=== PATIENT | female | born 1935 | race African-American/Black ===

== ENCOUNTER 2017-10-03 17:02 | Inpatient (IN) | payer MEDICARE, BC ==
[~2017-10-03] VITALS: Ht 167.6 cm; Wt 82.5 kg
--- NOTE | ~2017-10-03 | DS ---
PATIENT:MAURICIO PHILLIPS :31 MEDICAL RECORD: [id number] DISCHARGE SUMMARY ADMISSION DATE: 10/03/17 DISCHARGE DATE: 10/16/17 IDENTIFYING DATA: The patient is 82 years old and she was admitted to the hospital on a voluntary basis because of confusion. The patient had initially presented to the Emergency Room for evaluation. She is an elderly woman, who lives with her son in [place]. She had been wandering away from the house and would become very angry and was difficult to redirect at times. She had some uncontrolled aggressive behavior toward others. On admission, the patient had no recollection of this and was calm, but only oriented to person. The son felt he was unable to manage her and that she was a potential danger to herself and others because of her behavior. HOSPITAL COURSE: The patient was admitted to the hospital and fully evaluated from both a medical, psychological, and social standpoint. She was treated with both memory enhancing and mood stabilizing medications, and showed improvement in her behavior. As expected, there was no real improvement in her underlying level of cognitive impairment. The son was simply not able to provide the level of care that she needs and she was in need of 92-vvif-a-day supervision. She was subsequently referred to and accepted by a [facility]. DISCHARGE DIAGNOSES: AXIS I: Vascular dementia. AXIS II: None. AXIS III: Hypertension and diabetes. AXIS IV: Moderate stressors. AXIS V: Global assessment of functioning 35. PLAN: At the time of discharge, the patient was in good behavioral control with limited insight about her condition. She was tolerating her medicines well. Followup was to be with her primary care [facility] physician. TRANSINT:[id number] Voice Confirmation ID: [id number] DOCUMENT ID: [id number] JUDSON OSMAN MD at 1203 CC: [id number] DICTATION DATE: 10/20/17 1427 SOLUTIONS SALES CONSULTANT: 10/20/17 1624 DIS IN 10/16/17 [place] [id number] [place] [id number]
--- NOTE | ~2017-10-03 | PN ---
PATIENT:MAURICIO PHILLIPS MEDICAL RECORD: [id number] LOCATION:[facility] ADMISSION DATE: 10/03/17 PROGRESS NOTE DATE OF SERVICE: 10/14/2017 SUBJECTIVE: The patient's case was discussed with staff. She has no new complaint. OBJECTIVE: The patient is very poorly oriented and has a bit of anxiety today. This could be related to the fact that I reduced her Klonopin yesterday, but it may just be an isolated event. She is not aggressive or threatening towards anyone. ASSESSMENT: No change in diagnoses. PLAN: Current medicines have been reviewed and will be maintained. Long-term prognosis is guarded. TRANSINT:[id number] Voice Confirmation ID: [id number] DOCUMENT ID: [id number] JUDSON OSMAN MD at 1329 CC: [id number] DICTATION DATE: 10/14/17 1353 APPLICATION SUPPORT INTERN: 10/14/17 1438 ADM IN [place] [id number] [place] [address]
--- NOTE | ~2017-10-03 | PN ---
PATIENT:MAURICIO PHILLIPS MEDICAL RECORD: [id number] LOCATION:[facility] ADMISSION DATE: 10/03/17 PROGRESS NOTE DATE OF SERVICE: 10/09/2017 SUBJECTIVE: The patient's case was discussed with staff. She has no new complaint. OBJECTIVE: The patient is in good behavioral control with limited insight about her condition. She generally tolerates her medicines well. She is severely impaired cognitively, but has not had any psychotic symptoms or aggressive behavior. She is not eating as well as I would like, but at this point, I am going to observe it another day or two before starting her on Megace. She is sleeping adequately. I think her long-term prognosis is guarded and that she can reasonably be transitioned to a lower level of care in a few days if this level of improvement is maintained. TRANSINT:[id number] Voice Confirmation ID: [id number] DOCUMENT ID: [id number] JUDSON OSMAN MD at 0742 CC: [id number] DICTATION DATE: 10/09/17 1501 CHARGING OPERATOR: 10/09/17 1601 ADM IN [place] [id number] [place] [id number]
--- NOTE | ~2017-10-03 | PN ---
PATIENT:MAURICIO PHILLIPS MEDICAL RECORD: [id number] LOCATION:[facility] ADMISSION DATE: 10/03/17 PROGRESS NOTE DATE OF SERVICE: 10/10/2017 SUBJECTIVE: The patient's case was discussed with staff. She has no new complaint. OBJECTIVE: The patient is in good behavioral control with limited insight about her condition. She tolerates her medicines well. Eye contact is fair. ASSESSMENT: No change in diagnoses. PLAN: Supportive and educational interventions were made. Long-term prognosis is guarded. I anticipate the patient can be transitioned from her home to this setting to a custodial soon. TRANSINT:[id number] Voice Confirmation ID: [id number] DOCUMENT ID: [id number] JUDSON OSMAN MD at 0949 CC: [id number] DICTATION DATE: 10/10/17 08 OCCUPATIONAL THERAPY PROGRAM DIRECTOR: 10/10/17 0900 ADM IN [place] [id number] [place] [address]
--- NOTE | ~2017-10-03 | PN ---
PATIENT:MAURICIO PHILLIPS MEDICAL RECORD: [id number] LOCATION:[facility] ADMISSION DATE: 10/03/17 PROGRESS NOTE DATE OF SERVICE: 10/08/2017 SUBJECTIVE: The patient's case was discussed with staff. She has no new complaint. OBJECTIVE: The patient is in good behavioral control, but poorly oriented. She clearly has significant short-term memory loss and overall problems with cognitive impairment. She has not been aggressive and I have observed no psychotic symptoms. ASSESSMENT: No change in diagnoses. PLAN: This patient needs 44-obaa-g-day supervision. I suspect her son, with whom she lives, is not capable of providing this. She will be treated with current medicines and the treatment team will work toward finding her appropriate housing. TRANSINT:[id number] Voice Confirmation ID: [id number] DOCUMENT ID: [id number] JUDSON OSMAN MD at 1223 CC: [id number] DICTATION DATE: 10/08/17 1415 LAND DEGRADATION ANALYST: 10/08/17 1631 ADM IN [place] [id number] [place] [address]
--- NOTE | ~2017-10-03 | PN ---
PATIENT:MAURICIO PHILLIPS MEDICAL RECORD: [id number] LOCATION:[facility] ADMISSION DATE: 10/03/17 PROGRESS NOTE DATE OF SERVICE: 10/12/2017 SUBJECTIVE: The patient's case was discussed with staff. She has no new complaint. OBJECTIVE: The patient is very poorly oriented, in good behavioral control, but shows no agitation and no aggression. ASSESSMENT: No change in diagnoses. PLAN: The patient is taking Klonopin for some agitation that she initially had. I am going to reduce the dose of this slightly and would like to see if perhaps a lower dose would be as effective. I anticipate she can be transitioned out of the hospital soon. TRANSINT:[id number] Voice Confirmation ID: [id number] DOCUMENT ID: [id number] JUDSON OSMAN MD at 1402 CC: [id number] DICTATION DATE: 10/12/17 1450 LITERATURE TEACHER: 10/12/17 1542 ADM IN [place] [id number] [place] [address]
--- NOTE | ~2017-10-03 | PN ---
PATIENT:MAURICIO PHILLIPS MEDICAL RECORD: [id number] LOCATION:[facility] ADMISSION DATE: 10/03/17 PROGRESS NOTE DATE OF SERVICE: 10/05/2017 SUBJECTIVE: The patient's case was discussed with staff. She has no new complaint. OBJECTIVE: The patient was quite agitated last night. She was very disruptive and was actively hallucinating. Apparently, she was hallucinating a conversation with a relative and was having an argument with him. She has no recollection of this today. Clearly, she is having some ongoing psychotic symptoms. She will be started on an antipsychotic medication. Her long-term prognosis is guarded. She is going to require 19-myil-u-day supervision. TRANSINT:[id number] Voice Confirmation ID: [id number] DOCUMENT ID: [id number] JUDSON OSMAN MD at 1508 CC: [id number] DICTATION DATE: 10/05/17 1503 MECHANICAL ARTIST: 10/05/17 1713 ADM IN [place] [address] [place] [address]
--- NOTE | ~2017-10-03 | PN ---
PATIENT:MAURICIO PHILLIPS MEDICAL RECORD: [id number] LOCATION:[facility] ADMISSION DATE: 10/03/17 PROGRESS NOTE DATE OF SERVICE: 10/06/2017 SUBJECTIVE: The patient's case was discussed with staff. She has no new complaint. OBJECTIVE: The patient is in good behavioral control with limited insight about her condition. She tolerates her medicines well. ASSESSMENT: No change in diagnoses. PLAN: Brief supportive and educational interventions were made. Long-term prognosis is guarded. She is much more calm than she was on admission and it is my opinion that much of the difficulty that she was experiencing is related to a lack of structure and supervision. I am going to recommend 90-kecv-n-day care for her. At this point, I do not know what the least restrictive setting is in which that can be provided. TRANSINT:[id number] Voice Confirmation ID: [id number] DOCUMENT ID: [id number] JUDSON OSMAN MD at 1520 CC: [id number] DICTATION DATE: 10/06/17 1546 SENIOR FORMULATION SCIENTIST: 10/06/17 1641 ADM IN [facility] [address] [place] [address]
--- NOTE | ~2017-10-03 | PN ---
PATIENT:MAURICIO PHILLIPS MEDICAL RECORD: [id number] LOCATION:[facility] ADMISSION DATE: 10/03/17 PROGRESS NOTE DATE OF SERVICE: 10/13/2017 SUBJECTIVE: The patient's case was discussed with staff. She has no new complaint. OBJECTIVE: The patient is in good behavioral control with limited insight about her condition. She has not been aggressive today. ASSESSMENT: No change in diagnoses. PLAN: I anticipate the patient can be transitioned out of the hospital soon. correction placement is being sought. She has been told this, but she does not retain it, so I do not think there is any reason to keep repeating the same thing to her even though each time she has told that it is as though she has heard at the first time and it upsets her. I will wait till the day that she is going to be discharged. TRANSINT:[id number] Voice Confirmation ID: [id number] DOCUMENT ID: [id number] JUDSON OSMAN MD at 1315 CC: [id number] DICTATION DATE: 10/13/17 1505 SALES AND TRAINING SPECIALIST: 10/13/17 1526 ADM IN [facility] [address] [place] [address]
--- NOTE | ~2017-10-03 | PN ---
PATIENT:MAURICIO PHILLIPS MEDICAL RECORD: [id number] LOCATION:[facility] ADMISSION DATE: 10/03/17 PROGRESS NOTE DATE OF SERVICE: 10/15/2017 SUBJECTIVE: The patient's case was discussed with staff. She has no new complaint. OBJECTIVE: The patient is confused and wandering a great deal, but not agitated by any means. She has tolerated her medications well. She is definitely in need of 74-kfhx-d-day supervision and unfortunately given her overall circumstances, the least restrictive environment is going to be a prison. TRANSINT:[id number] Voice Confirmation ID: [id number] DOCUMENT ID: [id number] JUDSON OSMAN MD at 1710 CC: [id number] DICTATION DATE: 10/15/17 1416 POLICY AND PLANNING MANAGER: 10/15/17 1421 DIS IN 10/16/17 [facility] [address] [place] [address]
--- NOTE | ~2017-10-03 | PSY ---
PATIENT NAME:MAURICIO PHILLIPS MEDICAL RECORD: [id number] : 31 LOCATION:[facility] ADMISSION DATE: 10/03/17 ACCOUNT: [id number] PSYCHIATRIC EVALUATION DATE OF EVALUATION: 10/04/17 IDENTIFYING DATA: The patient is 82 years old and she is admitted to the hospital on a voluntary basis. CHIEF COMPLAINT: Confusion. HISTORY OF PRESENT ILLNESS: The patient presented to the Emergency Room for evaluation. She is an elderly woman, who lives with her son in [place]. Apparently, she has been wandering away from the house becoming very angry when redirected and has had uncontrolled aggressive behavior toward others. The patient has no recollection of this. She is actually calm, but only oriented to person. The son feels he is not able to manage her at home and that she is a potential danger to others. He is requesting evaluation and assistance. PAST MEDICAL HISTORY: Significant for stroke, hypertension, and diabetes. PAST PSYCHIATRIC HISTORY: Negative by her account, which is admittedly questionable. FAMILY HISTORY: Significant for cardiovascular disease, hypertension, and cancer, but no family history of psychiatric disease or dementia according to the patient, which again is questionable. ALLERGIES: No known drug allergies. CURRENT MEDICATIONS: Include Celexa, Januvia, Actos, potassium, Nexium, aspirin, Prinivil, Plavix, Klonopin, and Aricept. SOCIAL HISTORY: The patient is . She has 1 child, a son with whom she lives. She has no history of drug or alcohol abuse and has never smoked cigarettes. She has no history of legal entanglements. MENTAL STATUS EXAMINATION: The patient is awake, alert and oriented to person only. Her mood is flat. Her affect is constricted. Thought processes are circumstantial. Memory, concentration, and abstraction abilities are at least moderately impaired. She denies any active intent to harm herself or others as well as overt psychotic symptoms. ASSETS: Supportive family members. LIABILITIES: Limited insight. DIAGNOSTIC IMPRESSION: AXIS I: Vascular dementia. AXIS II: Deferred. AXIS III: Hypertension, diabetes. AXIS IV: Moderate stressors. AXIS V: Global assessment of functioning is 30. PLAN: At this time, the patient is admitted to the hospital for a comprehensive medical, psychological, and social evaluation. She will be treated with both mood stabilizing and memory enhancing medications. Her long-term prognosis is guarded. TRANSINT:[id number] Voice Confirmation ID: [id number] DOCUMENT ID: [id number] JUDSON OSMAN MD at 1320 CC: [id number] DICTATION DATE: 10/04/17 1119 PROCESS TANK TENDER: 10/04/17 1139 ADM IN [place] [id number] [place] [address]
--- NOTE | ~2017-10-03 | PN ---
PATIENT:MAURICIO PHILLIPS MEDICAL RECORD: [id number] LOCATION:[facility] ADMISSION DATE: 10/03/17 PROGRESS NOTE DATE OF SERVICE: 10/11/2017 SUBJECTIVE: The patient's case was discussed with staff. She has no new complaint. OBJECTIVE: The patient is in good behavioral control with limited insight about her condition. She does tolerate her medicines well. Eye contact is fair. ASSESSMENT: No change in diagnoses. PLAN: Brief supportive and educational interventions were made. Long-term prognosis is guarded. TRANSINT:[id number] Voice Confirmation ID: [id number] DOCUMENT ID: [id number] JUDSON OSMAN MD at 1428 CC: [id number] DICTATION DATE: 10/11/17 1029 HACKSAW INSPECTOR: 10/11/17 1306 ADM IN [place] [id number] [place] [address]
--- NOTE | ~2017-10-03 | PN ---
PATIENT:MAURICIO PHILLIPS MEDICAL RECORD: [id number] LOCATION:[facility] ADMISSION DATE: 10/03/17 PROGRESS NOTE DATE OF SERVICE: 10/07/2017 SUBJECTIVE: The patient's case was discussed with staff. She has no new complaint. OBJECTIVE: The patient has limited insight about her condition and tolerates her medicines well. Eye contact is fair. ASSESSMENT: No change in diagnoses. PLAN: Brief supportive and educational interventions were made. Long-term prognosis is guarded. TRANSINT:[id number] Voice Confirmation ID: [id number] DOCUMENT ID: [id number] JUDSON OSMAN MD at 0849 CC: [id number] DICTATION DATE: 10/07/17 1616 FORENSIC MATERIALS ENGINEER: 10/07/17 1811 ADM IN [place] [id number] [place] [id number]
[2017-10-03] MEDS ORDERED: JANUVIA100 MG PO (17:13)
[2017-10-03] MEDS ORDERED: AROMASIN25 MG PO (17:13)
[2017-10-03] MEDS ORDERED: CELEXA20 MG PO (17:13)
[2017-10-03] MEDS ORDERED: ACTOS15 MG PO (17:13)
[2017-10-03] MEDS ORDERED: ASPIRIN325 MG PO (17:14)
[2017-10-03] MEDS ORDERED: NEXIUM40 MG PO (17:14)
[2017-10-03] MEDS ORDERED: PRINIVIL20 MG PO (17:14)
[2017-10-03] MEDS ORDERED: KLOR-CON8 MEQ PO (17:14)
[2017-10-03] MEDS ORDERED: CLONAZEPAM0.5 MG/TAB PO (17:15)
[2017-10-03] MEDS ORDERED: ARICEPT10 MG PO (17:15)
[2017-10-03] MEDS ORDERED: PLAVIX75 MG PO (17:15)
[2017-10-03 17:40] LABS: BASOPHILS 0.4 % (0-2); EOSINOPHILS 3.9 % (0-7); HEMATOCRIT 39.8 % (36.0-48.0); HEMOGLOBIN 13.3 g/dL (12-16); IMMATURE GRANULOCYTES 0.1 % (0-5); MCH 30.6 pg (26.0-34.0); MCHC 33.4 g/dL (31.0-37.0); MCV 91.7 fL (80.0-100.0); MEAN PLATELET VOLUME 10.1 fL (7.4-10.4); MONOCYTES 10.1 % (2-11); NEUTROPHILS 62.5 % (40-80); PLATELET COUNT 185 10x3/uL (130-400); RBC 4.34 10x6/uL (4.00-5.40); WBC 8.4 10x3/uL (4.8-10.8)
[2017-10-03 18:12] LABS: ALBUMIN 3.5 g/dL (3.4-5.0); ANION GAP 12.6 mmol/L (8-16); BILIRUBIN - TOTAL 0.41 mg/dL (0.2-1.3); CALCIUM 9.2 mg/dL (8.5-10.1); CARBON DIOXIDE 26.9 mmol/L (21.0-32.0); CREATININE - SERUM 1.3 mg/dL (0.6-1.3); POTASSIUM - SERUM 3.5 mmol/L (3.5-5.1); PROTEIN - SERUM 7.9 g/dL (6.4-8.2)
[2017-10-03 19:01] LABS: APPEARANCE SL CLDY (CLEAR); COLOR YELLOW (YELLOW); UDS - AMPHET NEGATIVE QUAL (NEGATIVE); UDS - BARB NEGATIVE QUAL (NEGATIVE); UDS - BENZO NEGATIVE QUAL (NEGATIVE); UDS - COCAINE NEGATIVE QUAL (NEGATIVE); UDS - OPIATE NEGATIVE QUAL (NEGATIVE); UDS - PCP NEGATIVE QUAL (NEGATIVE); UDS - THC NEGATIVE QUAL (NEGATIVE)
[2017-10-03 19:02] LABS: BILIRUBIN NEGATIVE (NEGATIVE); GLUCOSE NEGATIVE (NEGATIVE); KETONE NEGATIVE (NEGATIVE); NITRITE NEGATIVE (NEGATIVE); PROTEIN NEGATIVE (NEGATIVE); UROBILINOGEN NORMAL (NORMAL); WHITE CELLS - URINE 25-50 /hpf (0-5)
[2017-10-03 19:03] LABS: BACTERIA MODERATE /hpf (NONE SEEN); EPITHELIAL CELLS 0-5 /hpf (0-5); RED CELLS - URINE 0-5 /hpf (0-5)
[2017-10-03 22:32] VITALS: BP 170/60
[2017-10-04 00:21] VITALS: BP 123/63; BMI 25.8
[2017-10-04 08:18] VITALS: BP 106/69
[2017-10-04 10:19] LABS: CHOL - HDL RATIO 3.3 ratio (2.3-4.1); LDL-HDL RATIO 1.9 ratio (1.5-3.5)
[2017-10-04 10:20] LABS: THYROID STIMULATING HORMONE 2.37 uIU/mL (0.36-3.74)
[2017-10-04 19:57] VITALS: BP 158/95
[2017-10-05 07:48] VITALS: BP 90/57
[2017-10-05 16:04] VITALS: BMI 29.7
[2017-10-05 20:23] VITALS: BP 160/67
[2017-10-06 07:30] LABS: FOLATE (FOLIC ACID) - SERUM 9.3 ng/mL (>3.0); RAPID PLASMA REAGIN Non Reactive (Non Reactive)
[2017-10-06 08:55] VITALS: BP 102/73
[2017-10-06 09:17] LABS: VITAMIN D 25 HYDROXY 21.5 ng/mL (30.0-100.0)
[2017-10-06 21:12] VITALS: BP 145/61
[2017-10-07 08:15] VITALS: BP 156/76
[2017-10-07 20:16] VITALS: BP 177/78
[2017-10-08 10:47] VITALS: BP 87/55
[2017-10-08 19:48] VITALS: BP 156/87
[2017-10-09 09:55] VITALS: BP 125/71
[2017-10-09 21:20] VITALS: BP 127/67
[2017-10-10 08:00] VITALS: BP 114/65
[2017-10-10 20:06] VITALS: BP 116/60
[2017-10-11 07:00] VITALS: BP 95/58
[2017-10-11 20:21] VITALS: BP 135/66
[2017-10-12 07:00] VITALS: BP 92/61
[2017-10-12 10:57] VITALS: Ht 167.6 cm; Wt 82.5 kg
[2017-10-13 07:00] VITALS: BP 136/64; BP 90/72
[2017-10-13 19:41] VITALS: BP 126/68
[2017-10-14 10:22] VITALS: BP 130/74
[2017-10-14 20:15] VITALS: BP 113/60
[2017-10-15 09:00] VITALS: BP 100/56
[2017-10-16] MEDS ORDERED: ARICEPT10 MG PO (08:14)
[2017-10-16] MEDS ORDERED: PERPHENAZINE2 MG PO (08:15)
[2017-10-16] MEDS ORDERED: KLONOPIN0.5 MG PO (08:15)
[2017-10-16] MEDS ORDERED: ASPIRIN81 MG PO (08:16)
[2017-10-16] MEDS ORDERED: VOLTAREN100 GM TOPICAL (08:16)
[2017-10-16 09:14] VITALS: BP 152/62
== END 2017-10-16 12:46 | DRG 57 ==
LOC: D.ER 17:02 → D.PSYCH 20:00 → D.ER 20:25 → D.PSYCH 10-16 12:46
PROVIDERS: Family Medicine; Psychiatry & Neurology Psychiatry
DX: I69.918 Other symptoms and signs involving cognitive functions following unspecified cerebrovascular disease (principal); F01.51 Vascular dementia, unspecified severity, with behavioral disturbance; N39.0 Urinary tract infection, site not specified; I10 Essential (primary) hypertension; E11.9 Type 2 diabetes mellitus without complications; K21.9 Gastro-esophageal reflux disease without esophagitis; M19.90 Unspecified osteoarthritis, unspecified site; F41.9 Anxiety disorder, unspecified; F32.9 Major depressive disorder, single episode, unspecified